=== PATIENT | female | born 1975 | race Caucasian/White ===

== ENCOUNTER → 2019-05-24 15:47 | Outpatient (CLI) | payer MEDICAID, SELFPAY ==
[2016-03-05 12:58] VITALS: BMI 40.6
[2019-05-24 16:13] LABS: Lipase 72 U/L (73-393)
== END ==
PROVIDERS: Family Provider Student in an Organized Health Care Education/Training Program; PCP Student in an Organized Health Care Education/Training Program; Referring Provider Family Medicine; Visit Provider Family Medicine
DX: R10.11 Right upper quadrant pain (principal)
CPT/HCPCS: 83690

== ENCOUNTER 2024-05-29 21:22 | Emergency (ER) | payer MEDICAID, SELFPAY ==
[2024-05-29 21:22] VITALS: BP 172/99; PULSE 80; RESP 18; TEMP 36.6; O2SAT 97; BMI 39.5
--- NOTE | 2024-05-29 21:40 | EX.ED.UPPERE ---
HPI History of Present Illness HPI Narrative: 48-year-old female history of migraine headaches. Was opening a can when she lacerated her right index finger near the tip. This occurred about an hour ago. Tetanus is up-to-date. She is right-hand dominant. Denies any other complaints. Chief Complaint: Laceration Informant: patient Occured/Mechanism Mechanism/Context: Yes injury Onset/Context/Timing Onset: Today and Hours Context: Sudden Onset Timing: Continuous Quality of Pain: Sharp Current Severity: Mild Maximum Severity: Mild Associated Symptoms Associated Symptoms: Negative for Parasthesia, Weakness or Loss of Funtion Narrative Narrative: 48-year-old female [id number] lacerated her right index finger on the distal end on Anali she was opening. No other complaints. Tetanus up-to-date. Tetanus Immunization: 5-10 years Prior similar symptoms: No Recent Illness/Hospitalization: No PFSH PFSH Home Medications ?Medication ?Instructions ?Recorded ?Last Taken ?Type citalopram 20 mg tablet 20 mg PO DAILY 03/05/16 Unknown History hydrocodone-acetaminophen 5-325mg 1 tab PO Q6H PRN PRN Pain ##10 03/05/16 Unknown Rx 5mg-325mg ondansetron HCl 8 mg tablet 8 mg PO Q8H PRN PRN Nausea ##10 03/05/16 Unknown Rx Allergy/AdvReac Type Severity Reaction Status Date / Time No Known Allergies Allergy Verified 05/29/24 21:22 Surgical History (Updated 05/29/24 @ 21:47 by Wendy Fink) Hx of cholecystectomy Hx of section Social History Smoking Status: Never smoker ROS ROS ED ROS Narrative Denies recent illness. Constitutional Constitutional ED: Denies fever(s) Eyes Eyes: Denies blurry vision ENT ENT ED: Denies ear pain Cardiovascular Cardiovascular: Denies chest pain Respiratory/Chest Respiratory/Chest: Denies cough Gastrointestinal Gastrointestinal: Denies abdominal pain Genitourinary Genitourinary ED: Denies dysuria Musculoskeletal Musculoskeletal: Denies back pain Integumentary Denies abscess Neurologic Neurologic: Denies headache(s) Psychiatric Psychiatric: Denies anxiety or depression Endocrine Endocrinology: Denies cold intolerance Hematologic/Lymphatic Hematologic/Lymphatic: Denies easy bleeding Allergic/Immunologic Allergic/Immunologic ED: Denies mouth swelling EXAM Physical Exam Narrative Exam Narrative: Well-appearing 48-year-old female. Vital signs stable afebrile. H EENT exam unremarkable. Neck nontender. Lungs clear. Heart regular rhythm rate about 80 no murmur. Chest wall nontender. Abdomen soft nontender. Moving all 4 extremities. Neurovascular intact. Full range of motion. Normal strength and sensation. Right hand right index finger radial side in the distal phalanx she has about 1/2 to 1 inch superficial laceration. It does bleed. She has full range of motion of the digit. No foreign body or signs of infection. I think this can be appropriately dermabonded and Steri-Stripped. Otherwise exam unremarkable. Const Vital Signs: 05/29/24 21:22 Temperature 97.9 F Temperature Source Temporal Pulse Rate 80 Respiratory Rate 18 Blood Pressure 172/99 H Blood Pressure Mean 123 Pulse Ox 97 Oxygen Delivery Method Room Air Positive well nourished and well developed; Negative for cachectic, contractures or unkempt General Appearance ED: well developed and NAD; Negative for unkempt, cachectic, contractures, cyanotic or diaphoretic Nutritional Appearance: Negative for cachectic HEENT Reports moist mucous membranes normocephalic and atraumatic Eyes PERRL and EOMs intact bilaterally Neck full ROM and supple Chest Wall inspection of chest normal and palpation of chest normal Chest: Negative for other Resp normal respiratory effort and clear to auscultation bilaterally Effort and Inspection: Negative for pain with movement Auscultation: Negative for rales, rhonchi or wheezes Cardio regular rhythm, S1 normal heart sound, S2 normal heart sound and no murmurs Rate: Negative for bradycardia or tachycardic Rhythm: Negative for abnormal rhythm GI non-tender, non-distended and no masses Inspection: Negative for abdominal distention Auscultation: normoactive bowel sounds Palpation: soft; Negative for tender, guarding or rebound tenderness present Back/Spine no CVA tenderness General Back: Negative for CVA tenderness Cervical Spine: Negative for cervical spine tenderness Thoracic Spine / Upper Back: Negative for thoracic spinal tenderness Lumbar Spine / Lower Back: Negative for lumbar spinal tenderness or straight leg raise negative bilaterally Extremity normal to inspection and full ROM Extremity Narrative: Right index finger distal phalanx, radial side along the nail half to 1 inch superficial laceration. Mild bleeding. No infection or foreign body. Full range of motion. Normal touch sensation. Neuro oriented x3, CN's II-XII intact bilaterally, moves all extremities, no focal motor deficits and no sensory deficits noted Sensorium / Orientation: alert, oriented to person, oriented to place and oriented to time; Negative for orientation impaired, lethargic or stuporous Motor Exam: strength 5/5 throughout Psych mental status grossly normal Appearance: Negative for unkempt Attitude: No agitated Mood & Affect: Negative for depressed, anxious or tearful Skin General Skin Exam: Negative for petechiae Lesions: no lesions Rashes: no rashes Trauma: laceration; Negative for no lacerations or abrasions MDM MDM MDM Narrative Medical decision making narrative: 48-year-old female right index finger laceration. Tetanus up-to-date. Cleaned. Dermabond Steri-Strip dressed and discharged. Keep dry and clean. Remove the dressing in 4 days. Clean daily. Watch for any signs of infection. History & Record Review Discussion w/independent historian: Patient Discharge Plan Triage Chief Complaint: Laceration ED Provider: Dixon Abbott Dx/Rx/DC Orders Clinical Impression: Laceration of right index finger Instructions: ED Laceration, All Closures Prescriptions: No Action citalopram 20 MG tablet 20 mg PO DAILY hydrocodone-acetaminophen 1 TABLET tablet 1 tab PO Q6H PRN PRN (Reason: Pain) Qty: 10 0RF ondansetron HCl 8 MG tablet 8 mg PO Q8H PRN PRN (Reason: Nausea) Qty: 10 0RF Primary Care Provider: Ric Ventura Referrals: Ric Ventura DO [Primary Care Provider] - As Needed Activity Restrictions/Additional Instructions: Keep clean and dry. If the dressing stays dry and clean you can take it off in 5 days. Clean gently daily with soap and water after remove the dressing. Return if any signs of infection. You can remove the Steri-Strips in 7 to 10 days. Any signs of infection return. Print Language: Sinhala Disposition Disposition: Home, Self Care
== END 2024-05-29 21:58 | disposition home or self-care (01) ==
PROVIDERS: Emergency Provider Emergency Medicine; PCP Student in an Organized Health Care Education/Training Program; Visit Provider Emergency Medicine
DX: S61.210A Laceration without foreign body of right index finger without damage to nail, initial encounter (principal); W26.8XXA Contact with other sharp object(s), not elsewhere classified, initial encounter
CPT/HCPCS: 12001; 99282

== ENCOUNTER 2025-01-09 11:28 | Emergency (ER) | payer MEDICAID, SELFPAY ==
[2025-01-09] VITALS (7 sets, daily range): BP systolic 146–168; BP diastolic 76–105; PULSE 72–97; RESP 16–19; TEMP 36.6–37; O2SAT 96–99; BMI 38.5
--- NOTE | 2025-01-09 12:53 | US_ITS ---
PROCEDURE: TRANSVAGINAL NON- (USTVAG), 01/09/2025 REASON FOR EXAM: ABN VAG BLEEDING TECHNIQUE: Grayscale and color doppler as well as spectral doppler transvaginal pelvic ultrasound was performed. COMPARISON: None FINDINGS: Exam is slightly limited by shadowing bowel gas. Uterus: 10.6 x 7.8 x 6.4 cm, Anteflexed. Unremarkable echotexture. Endometrium: 18 mm, echogenic secretory appearance, with associated vascularity. Punctate 2 x 2 x 2 mm possible calcification at the junction with the myometrium posteriorly, doubtful clinical significance. Cervix: Nabothian cysts. Right ovary: 4.2 x 2.9 x 2.2 cm (estimated volume 13.9 mL). 2.6 x 2.2 x 2.0 cm simple appearing unilocular likely cyst. Normal low resistance arterial and possibly also venous waveforms. Left ovary: Nonvisualized, likely due to shadowing bowel gas and/or positioning. Free fluid: None visualized. US/Transvaginal Non- IMPRESSION: 1. Endometrial thickness would be considered mildly thickened in a premenopausa l patient and markedly abnormally thickened in a postmenopausal patient, with associated vascularity. Findings are nonspecific but neoplasia cannot be excluded particularly if the patient is postmenopausal. At a minimum, if the patient is premenopausal, r ecommend a short interval follow-up pelvic ultrasound in the late proliferative phase when endometrial thickness is expect ed to be at a nirali to document resolution. If the patient is postmenopausal, outpatient tissue sampling should be considered. 2. 2.6 cm simple appearing unilocular RIGHT ovarian cyst. In a premenopausal p atient, this would be most likely a dominant follicle/physiologic cyst, O-RADS 1. In a postmenopausal patient, this would b e considered O-RADS 2. In either case, no follow-up specific follow-up is required per O-RADS. 3. Nonvisualization of the LEFT ovary. 4. Additional description as above. Reading Location: [id number]
--- NOTE | 2025-01-09 12:54 | ED.VIS.FEGU ---
HPI HPI - Female History of Present Illness Chief Complaint: Vag Bld, Preg Informant: patient Narrative Narrative: Sent in by PCP office for abnormal vaginal bleeding. Patient perimenopausal for last 2 years was having menstrual period every 6 months. She had a normal menstrual period earlier this month heavy. Last 2 days ends after few days. She has been spotting here and there ever since. Last 5 days going through so pads at least 8 a day. No lightheaded symptoms no anticoagulation but occasional cramping pelvis region. She does not smoke. She discussed with her PCP tried getting her with [facility] gynecology however appointment not for 2 weeks. They referred her here. Prior similar symptoms: No PFSH PFSH Medical History ADHD Anxiety Migraine HTN (hypertension) Home Medications ?Medication ?Instructions ?Recorded ?Last Taken ?Type bupropion HCl 300 mg 24 hr tablet, 300 mg PO DAILY 01/09/25 Unknown History extended release cyanocobalamin (vitamin B-12) 2,000 mcg PO DAILY 01/09/25 Unknown History 1,000 mcg tablet dextroamphetamine-amphetamine ER 1 cap PO DAILY 01/09/25 Unknown History 20 mg 24hr capsule,extend release duloxetine 60 mg capsule,delayed 60 mg PO DAILY 01/09/25 Unknown History release losartan 100 mg tablet 100 mg PO DAILY 01/09/25 Unknown History metformin 750 mg tablet,extended 750 mg PO DAILY 01/09/25 Unknown History release 24 hr norethindrone acetate 5 mg tablet 5 mg PO .asdir 10 days #30 tabs 01/09/25 Unknown Rx topiramate 100 mg tablet 100 mg PO BID 01/09/25 Unknown History Allergy/AdvReac Type Severity Reaction Status Date / Time No Known Allergies Allergy Verified 01/09/25 11:30 Surgical History Hx of cholecystectomy Hx of section Social History Smoking Status: Never smoker ROS ROS ED Constitutional Constitutional ED: Denies chills, fever(s) or sweats ENT ENT ED: Denies sore throat Cardiovascular Cardiovascular: Denies chest pain, leg edema, palpitations or racing heartbeat Respiratory/Chest Respiratory/Chest: Denies cough, dyspnea or dyspnea on exertion Gastrointestinal Gastrointestinal: Denies abdominal pain, diarrhea, nausea or vomiting Genitourinary Genitourinary ED: Reports other Details: Vaginal bleeding ; Denies dysuria, hematuria or urinary frequency Musculoskeletal Musculoskeletal: Denies back pain, extremity pain or neck pain Integumentary Denies rash or wounds Neurologic Neurologic: Denies headache(s), paresthesias or weakness EXAM Physical Exam Const Vital Signs: 01/09/25 11:31 01/09/25 12:29 01/09/25 13:00 Temperature 98.6 F Temperature Source Oral Pulse Rate 97 81 87 Respiratory Rate 18 18 16 Blood Pressure 168/105 H 147/98 H 167/89 H Blood Pressure Mean 126 114 115 Pulse Ox 98 99 99 Oxygen Delivery Method Room Air Room Air Room Air 01/09/25 14:00 01/09/25 15:00 01/09/25 16:00 Temperature Temperature Source Pulse Rate 90 89 72 Respiratory Rate 18 17 18 Blood Pressure 157/88 H 155/91 H 146/76 H Blood Pressure Mean 111 112 99 Pulse Ox 99 97 96 Oxygen Delivery Method Room Air Room Air Room Air 01/09/25 16:52 Temperature 98 F Temperature Source Pulse Rate 81 Respiratory Rate 19 H Blood Pressure 147/78 H Blood Pressure Mean 101 Pulse Ox 99 Oxygen Delivery Method Positive well nourished and well developed General Appearance ED: well developed and NAD HEENT Reports moist mucous membranes normocephalic and atraumatic Eyes General Eye ED: Yes normal appearance of both eyes Neck full ROM Chest Wall Chest: Negative for tenderness Resp normal respiratory effort and normal air movement Effort and Inspection: symmetric chest movement; Negative for respiratory distress Cardio regular rate, regular rhythm and no murmurs Peripheral Pulses: pulses 2+ throughout GI normal to inspection, nondistended, normoactive bowel sounds and non-tender Palpation: Negative for guarding or rebound tenderness present Narrative: Nursing client support representative pelvic exam. There was dried blood externally however there is no lesions. Speculum examination small clot in the vault was removed there is minimal blood from the cervix. No lesions of the external canal noted. Extremity normal to inspection General Extremety ED: Negative for edema or tenderness General Extremity: Negative for edema Neuro oriented x3 and no sensory deficits noted Sensorium / Orientation: awake and alert Skin no rashes or lesions noted and no wounds MDM MDM MDM Narrative Medical decision making narrative: Interventions / MDM: Differential diagnosis: Abnormal uterine bleeding, thickened endometrium, uterine cancer Diagnosis considered but do not suspect: N/A My EKG interpretation: N/A Imaging independently reviewed and interpreted by myself: Pelvic ultrasound: : Per radiology 18 mm thickened endometrium, right ovarian cyst 2.6 cm. External documents reviewed: N/A Test considered but not ordered:N/A ED course: Patient increasing bleeding over 5 days. No clinical anemia. Will check CBC, pelvic ultrasound ordered. Pelvic exam no external lesions noted. Clot in the vault. Blood from the cervical os. Ultrasound pending. Ultrasound endometrium 18 mm. Hemoglobin stable at 12.5. Minimal bleeding during ED evaluation. Patient is perimenopausal, therefore undifferentiated on risk at this time. I discussed with gynecology through [facility] Dr. Eason, we will place patient on Aygestin hourly for 5 doses then 3 times a day until visit in the office. Office will reach out to her for appointment. Patient understands and agrees with plan. Re-evaluation: stable Disposition discussed with patient/family/significant other: Patient Case discussed with consulting clinician: [facility] gynecology This note was generated with [employer] dictation software. It may contain incorrect words, spelling, and punctuation that were not noted in checking the note before signing. Lab Data Labs: Laboratory Results - last 24 hr 01/09/25 13:05 WBC 6.9 RBC 4.44 Hgb 12.5 Hct 37.4 MCV 84.2 MCH 28.2 MCHC 33.4 RDW Std Deviation 43.8 RDW Coeff of Demarco 14.2 Plt Count 225 MPV 8.8 Immature Gran % (Auto) 0.400 Neut % (Auto) 73.1 H Lymph % (Auto) 16.5 L [place] % (Auto) 7.2 Eos % (Auto) 2.2 Baso % (Auto) 0.6 Absolute Neuts (auto) 5.1 Absolute Lymphs (auto) 1.14 Nucleated RBC % 0 Radiography Diagnostic Testing: Clinical Impression(s) from Imaging Studies Transvaginal US 01/09/25 12:53 IMPRESSION: 1. Endometrial thickness would be considered mildly thickened in a premenopausal patient and markedly abnormally thickened in a postmenopausal patient, with associated vascularity. Findings are nonspecific but neoplasia cannot be excluded particularly if the patient is postmenopausal. At a minimum, if the patient is premenopausal, recommend a short interval follow-up pelvic ultrasound in the late proliferative phase when endometrial thickness is expected to be at a nirali to document resolution. If the patient is postmenopausal, outpatient tissue sampling should be considered. 2. 2.6 cm simple appearing unilocular RIGHT ovarian cyst. In a premenopausal patient, this would be most likely a dominant follicle/physiologic cyst, O-RADS 1. In a postmenopausal patient, this would be considered O-RADS 2. In either case, no follow-up specific follow-up is required per O-RADS. 3. Nonvisualization of the LEFT ovary. 4. Additional description as above. Reading Location: [facility] Discharge Plan Triage Chief Complaint: Vag Bld, Preg ED Provider: Moi Moore Dx/Rx/DC Orders Clinical Impression: Dysfunctional uterine bleeding, Endometrial thickening on ultrasound, Kim-menopausal, Ovarian cyst Instructions: Perimenopause, ED Dysfunctional Uterine Bleeding Prescriptions: New norethindrone acetate 5 mg tablet 5 mg PO .asdir 10 Days Qty: 30 0RF Rx Instructions: Take 1 tab every hour for the first 5-hour, then take 1 tab 3 times a day until follow-up. No Action cyanocobalamin (vitamin B-12) 1,000 mcg tablet 2,000 mcg PO DAILY dextroamphetamine-amphetamine 20 mg capsule,extended release 24hr 1 cap PO DAILY bupropion HCl 300 mg tablet extended release 24 hr 300 mg PO DAILY duloxetine 60 mg capsule,delayed release(DR/EC) 60 mg PO DAILY losartan 100 mg tablet 100 mg PO DAILY metformin 750 mg tablet extended release 24 hr 750 mg PO DAILY topiramate 100 mg tablet 100 mg PO BID Primary Care Provider: Ric Ventura Referrals: Ric Ventura DO [Primary Care Provider] - Leonor Eason MD [Med Staff - Active Staff] - 3-5 Days Activity Restrictions/Additional Instructions: Hemoglobin 12.5. Ultrasound with endometrial thickening of [address] Eason in the ED. Take medication as prescribed to help with bleeding.. Office will call you tomorrow for close follow-up. Print Language: Tunisian Disposition Disposition: Home, Self Care Discharge Date/Time: 01/09/25 16:53
[2025-01-09 13:26] LABS: Absolute Lymphocyte Count 1.14 X10^3/uL (0.83-4.51); Absolute Neutrophil Count 5.1 X10^3/uL (2.0-7.7); Basophil# 0.04 X10^3/uL; Basophil% 0.6 % (0-1); Eosinophil# 0.15 X10^3/uL; Eosinophils% 2.2 % (0-5); Hematocrit 37.4 % (37-47); Hemoglobin 12.5 g/dL (12.0-15.0); Lymphocyte # 1.14 X10^3/ul (0.83-4.51); Lymphocyte % 16.5 % (19-41); Mean Corp Hgb Conc 33.4 g/dL (32-36); Mean Corpuscular Hgb 28.2 pg (27.0-32.0); Mean Corpuscular Volume 84.2 fL (81-99); Mean Platelet Vol. 8.8 fl (6.2-12.0); Monocyte% 7.2 % (0-10); NRBC Flagged by Analyzer 0 % (0-5); Neutrophil # 5.07 X10^3/uL (2.7-7.7); Neutrophil % 73.1 % (47-70); Platelet Count 225 K/mm3 (150-450); RBC Distribution Width CV 14.2 % (11.6-14.6); RBC Distribution Width SD 43.8 fl (35.1-43.9); Red Blood Count 4.44 M/mm3 (4.2-5.4); White Blood Count 6.9 K/mm3 (4.4-11.0)
== END 2025-01-09 16:53 | disposition home or self-care (01) ==
PROVIDERS: Emergency Provider Emergency Medicine; PCP Student in an Organized Health Care Education/Training Program; Visit Provider Emergency Medicine
DX: N93.8 Other specified abnormal uterine and vaginal bleeding (principal); N83.291 Other ovarian cyst, right side; I10 Essential (primary) hypertension; Z79.84 Long term (current) use of oral hypoglycemic drugs; Z79.899 Other long term (current) drug therapy
CPT/HCPCS: 76830; 85025; 99282; A4216